=== PATIENT | female | born 1990 | race Caucasian/White ===

== ENCOUNTER 2016-05-19 16:31 | Emergency (ER) | payer OTHER ==
--- NOTE | 2016-05-19 19:23 | DIAGNOSTIC IMAGING REPORT ---
PROCEDURE: US 2ND TRIMESTER INDICATION: Lower abdominal pain TECHNIQUE: Wynne scale, color, and spectral Doppler images of the second trimester gravid uterus were obtained. COMPARISON: None. FINDINGS: Single intrauterine with breech presentation. Low-lying posterior placenta but no previa or abruptio. Normal heart rate, 135 bpm. Amniotic fluid is unremarkable. Normal closed cervix measures 3.8 cm. BPD 3.8 cm, 17 weeks 4 days; head, confidence of 14.1 cm, 17 weeks 3 days; abdominal circumference 11.9 cm, 17 weeks 4 days; femur length 2.4 cm, 17 weeks 1 day. Composite age 17 weeks 3 days. TERRELL 10/24/2016. IMPRESSION: 1. Single live intrauterine , breech, 17 weeks 3 days 2. TERRELL 10/24/2016 3. Low-lying posterior placenta without previa or abruptio
--- NOTE | 2016-05-19 19:45 | ED NURSING NOTES ---
Clinical Report - Nurses [facility] [address] [place] [place] [address] 05/19/2016 16:32 Patient: JV DAVID TRIAGE Triage time 16:44. Acuity: LEVEL 3. Chief Complaint: ABDOMINAL PAIN and SPOTTING. Alert. No acute distress. SEPSIS SCREEN: Sepsis Screen: negative. Negative (no infection suspected/documented). BERYL COMA SCORE: [place] Coma Scale: 15- eyes open spontaneously (4); best verbal response- oriented x 4 (5); best motor response- obeys commands (6). --16:50 Marii Hall R.N. 16:44 05/19/16. BP: 139/75. HR: 81. RR: 18. O2 saturation: 100%. Temp: 98.4 F. Pain level now: 11/15. --16:50 Marii Hall R.N. 16:44 05/19/16. BP: 139/75. HR: 81. RR: 18. O2 saturation: 100%. Temp: 98.4 F. Pain level now: 11/15. --16:51 Marii Hall R.N. HEART TONES: heart tones present to the right upper quadrant (135). --17:03 Marii Hall R.N. Weight: 68 kg stated. Height/Length: 59 inches Per Patient. BMI: 30.3. --16:48 Marii Hall R.N. Medications Asa 81mg day. --16:46 Marii Hall R.N. Vitamins Oral. --16:46 Marii Hall R.N. Medication/allergy information source: the patient. --16:50 Marii Hall R.N. Allergies No Known Drug Allergy. --16:46 Marii Hall R.N. History Arrived by private vehicle. Historian: patient and family. Accompanied by (Baby's father). Primary physician (steffany- ob). This is a new problem. (1 PM). No vomiting. Last oral intake by patient was lunch today. 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 PAST MEDICAL HX: Immunizations: status is unknown. Last normal menstrual period- Jan 20. 4. Para 3. Abortions 0. OB history: G 4; P 3; Ab 0. ( hypertension with last ). SURGERY HX: has been performed three times. SOCIAL HX: Never smoker. No alcohol use or drug use. FALL RISK ASSESSMENT: Fall risk assessment completed. No fall risk identified. NUTRITIONAL RISK ASSESSMENT: The nutritional risk assessment revealed no deficiencies. FUNCTIONAL ASSESSMENT: Functional assessment: no impairments noted. LEARNING NEEDS ASSESSMENT: The learning needs assessment revealed no barriers. SKIN INTEGRITY ASSESSMENT: Skin integrity risk assessment completed. No skin integrity risk identified. --16:50 Marii Hall R.N. Interventions ID band on patient. To room. --16:50 Marii Hall R.N. PHYSICAL ASSESSMENT To room via wheelchair. Patient gowned. GENERAL / NEURO / PSYCH: Alert. Oriented X 4. Appears in pain and anxious. HEENT: Mucous membranes are pink. RESPIRATORY: Respirations not labored. CVS: Capillary refill less than 2 seconds. GI / : Scant vaginal bleeding present (Happened x 1 after the incident. When wiped.). SKIN: Skin is warm and dry. --16:52 Marii Hall R.N. NURSING PROGRESS NOTES Patient gowned. Head of bed elevated. Two patient identifiers checked. Call light placed in reach. Side rails up x 2. Bed placed in lowest position. Brakes of bed on. Patient ready for evaluation. --16:52 Marii Hall R.N. <<STRICKEN ENTRY-- 18:10. --18:32 Marii Hall R.N. --END STRIKE>> Correction --18:33 Marii Hall R.N. 18:30 05/19/16. BP: 132/69. HR: 88. RR: 20. O2 saturation: 99% on room air. --18:32 Marii Hall R.N. ( us at the bedside.). --18:33 Marii Hall R.N. 19:00 05/19/16. Patient ID band checked for patient name: patient confirmed. Instructions provided to collect clean catch urine and patient verbalized understanding. Clean catch urine collected with return of yellow-colored clear urine; sample sent to lab for urinalysis and culture. Specimen labeled in the presence of the patient. --19:00 Marii Hall R.N. 18:30 05/19/16. BP: 132/69. HR: 88. RR: 20. O2 saturation: 99% on room air. --20:12 Marii Hall R.N. DISPOSITION / DISCHARGE Departure time: 1950 PM. Condition at departure: improved and stable. The goals identified in the patient's plan of care were met. No learning barriers present. Discharge instructions provided and reviewed with the patient. Reviewed warnings (follow up with OB). Reviewed medication(s) side effects, precautions, dosing and course information. Activity restrictions reviewed. Patient verbalized understanding. Written instructions provided in Slovak. FALL RISK ASSESSMENT: Fall risk assessment completed. No fall risk identified. --20:14 Marcelle Matt R.N. 19:45 05/19/16. BP: 120/57 (regular adult cuff) taken on the left arm, via an automated monitor, while sitting. HR: 76. RR: 15. O2 saturation: 97% on room air. Temp: 98.2 F (oral). Pain level now: 0/10. --20:14 Marcelle Matt R.N. Locked/Released at 05/19/2016 20:14 by Marcelle Matt R.N.
--- NOTE | 2016-05-19 19:45 | ED CLINICAL REPORT ---
Clinical Report - Physicians/Mid Levels [facility] [address] [place] [address] 05/19/2016 16:32 Patient: JV DAVID Time Seen: 17:35 May 19 2016. Arrived- By private vehicle. Historian- patient. HISTORY OF PRESENT ILLNESS Chief Complaint: PELVIC PAIN. This started just prior to arrival and still present. The symptoms are described as mild. The patient has had abdominal pain. No vaginal discharge, pain with urination or urinary frequency. Not sexually active. 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 Unsure of her blood type. Denher injuries.). REVIEW OF SYSTEMS No vomiting or diarrhea. All systems otherwise negative, except as recorded above. ADDITIONAL NOTES The nursing notes have been reviewed. PHYSICAL EXAM Vital Signs: 05/19/2016 16:44 BP: 139/75. HR: 81. RR: 18. O2 saturation: 100%. Temp: 98.4 F. Pain level now: 8/10. Appearance: Alert. HEENT: Normal external inspection. Neck: Neck supple. No thyromegaly or lymphadenopathy. CVS: Heart sounds normal. Rhythm normal. Respiratory: No respiratory distress. Breath sounds normal. Abdomen: Soft. Tenderness in the suprapubic area. Gravid uterus palpable to umbilicus. No organomegaly. Back: Normal external inspection. No CVA tenderness. Skin: Skin warm. Neuro: Oriented X 3. LABS, X-RAYS, AND EKG Laboratory Tests: UA-Culture if indicated: (LEELA: 05/19/2016 18:55) ( MsgRcvd 05/19/2016 19:31) Final results Test Result Flag Units (Reference) URINE COLOR YELLOW URINE APPEARANCE CLEAR URINE GLUCOSE NEGATIVE (NEGATIVE) URINE BILIRUBIN NEGATIVE (NEGATIVE) URINE KETONE NEGATIVE (NEGATIVE) URINE SPECIFIC GRAVITY 1.010 (1.010-1.030) URINE PH 6.0 (5.0-8.0) URINE PROTEIN NEGATIVE (NEGATIVE) URINE UROBILINOGEN 1.0 EU/dL (0.2-1.0) URINE NITRITE NEGATIVE (NEGATIVE) URINE BLOOD NEGATIVE (NEGATIVE) URINE LEUK ESTERASE POSITIVE (NEGATIVE) URINE RBC NONE SEEN rbc/hpf (0-1) URINE WBC 1-3 wbc/hpf (0-1) URINE EPITHELIAL CELLS 0-1 EPI/hpf (0-5) URINE BACTERIA TRACE (<1+) (NONE SEEN) URINE COMMENT CULTURE INDICATED URINE CULTURES ARE SET-UP BASED ON THE FOLLOWING CRITERIA:POSITIVE NITRITEPOSITIVE LEUKOCYTE ESTERASEGREATER THAN 10 WHITE BLOOD CELLSMODERATE (2+) OR GREATER BACTERIA Type & Rh: (LEELA: 05/19/2016 17:35) ( MsgRcvd 05/19/2016 17:51) Final results Test Result Flag Units (Reference) PATIENT BLOOD TYPE B Positive . Note - Tests: (US 2nd tri: IMPRESSION: 1. Single live intrauterine , breech, 17 weeks 3 days 2. TERRELL 10/24/2016 3. Low-lying posterior placenta without previa or abruptio Electronically Final signed by:Murali Morrell MD 05/19/2016 7:22:45 PM). PROGRESS AND PROCEDURES Course of Care: patient here and there is stable, no signs of injury. Pelvic exam per ago, patient denies any vaginal bleeding, and none noted while in the ER per patient. Patient is stable. Ultrasound is unremarkable. Urinalysis unremarkable. To follow up outpatient. Does not require RhoGAM at this time. Patient is stable. Symptoms better. Patient/family counseled. Disposition: Discharged. CLINICAL IMPRESSION Second trimester intrauterine . Contusion to abdomen in setting of . INSTRUCTIONS Drink plenty of fluids. Warnings: Further evaluation is necessary. OTC Medications: Take acetaminophen (Tylenol, Datril, etc.) according to label instructions. Available over the counter. Follow-up: Follow up with your doctor in three days. (Electronically signed by Darlene Avery P.A.-C 05/19/2016 21:13)
--- NOTE | 2016-05-19 19:45 | ED ORDER SUMMARY ---
..... Patient: JV DAVID OrderSheet [facility] VisitID: [id number] [address] [place] [address] 25y, F Registration Date/Time: 05/19/2016 ORDER SHEET Weight: 68.0 kg (stated) Allergies: No Known Drug Allergy GENERAL ORDERS: US OB 2nd Trimester (d) Urgent (17:06 05/19/2016 EKoroleva P.A.-C) (Ack 17:32 RKaruga) (19:29 ASchmuck) Type & Rh Urgent (17:06 05/19/2016 EKoroleva P.A.-C) (Ack 17:32 RKaruga) (19:49 Maggy R.N.) UA-Culture if indicated Urgent (17:48 05/19/2016 EKoroleva P.A.-C) (Ack 18:11 RKaruga) (19:31 ALawrence ER Tech1) US Abdomen Limited (No) Urgent (20:09 05/19/2016 EKoroleva P.A.-C) (Cancelled: Other20:09 EKoroleva P.A.-C) MEDICATION ORDERS: IV FLUIDS: ORDER SHEET NOTES: [Electronically signed by Marcelle Matt R.N. (20:14 05/19/2016)] [Electronically signed by Darlene Avery P.A.-C (21:13 05/19/2016)] [Electronically locked/signed by Marcelle Matt R.N. (20:14 05/19/2016)]
--- NOTE | 2016-05-19 19:45 | ED ORDER SUMMARY ---
..... Patient: JV DAVID OrderSheet [facility] VisitID: [id number] [address] [place] [address] 25y, F Registration Date/Time: 05/19/2016 ORDER SHEET Weight: 68.0 kg (stated) Allergies: No Known Drug Allergy GENERAL ORDERS: US OB 2nd Trimester (d) Urgent (17:06 05/19/2016 EKoroleva P.A.-C) (Ack 17:32 RKaruga) (19:29 ASchmuck) Type & Rh Urgent (17:06 05/19/2016 EKoroleva P.A.-C) (Ack 17:32 RKaruga) (19:49 Maggy R.N.) UA-Culture if indicated Urgent (17:48 05/19/2016 EKoroleva P.A.-C) (Ack 18:11 RKaruga) (19:31 ALawrence ER Tech1) US Abdomen Limited (No) Urgent (20:09 05/19/2016 EKoroleva P.A.-C) (Cancelled: Other20:09 EKoroleva P.A.-C) MEDICATION ORDERS: IV FLUIDS: ORDER SHEET NOTES: [Electronically signed by Marcelle Matt R.N. (20:14 05/19/2016)] [Electronically signed by Darlene Avery P.A.-C (21:13 05/19/2016)] [Electronically locked/signed by Marcelle Matt R.N. (20:14 05/19/2016)]
--- NOTE | 2016-05-19 19:45 | ED NURSING NOTES ---
Clinical Report - Nurses [address] [place] [place] [address] 05/19/2016 16:32 Patient: JV DAVID TRIAGE Triage time 16:44. Acuity: LEVEL 3. Chief Complaint: ABDOMINAL PAIN and SPOTTING. Alert. No acute distress. SEPSIS SCREEN: Sepsis Screen: negative. Negative (no infection suspected/documented). BERYL COMA SCORE: [place] Coma Scale: 15- eyes open spontaneously (4); best verbal response- oriented x 4 (5); best motor response- obeys commands (6). --16:50 Marii Hall R.N. 16:44 05/19/16. BP: 139/75. HR: 81. RR: 18. O2 saturation: 100%. Temp: 98.4 F. Pain level now: 11/15. --16:50 Marii Hall R.N. 16:44 05/19/16. BP: 139/75. HR: 81. RR: 18. O2 saturation: 100%. Temp: 98.4 F. Pain level now: 11/15. --16:51 Marii Hall R.N. HEART TONES: heart tones present to the right upper quadrant (135). --17:03 Marii Hall R.N. Weight: 68 kg stated. Height/Length: 59 inches Per Patient. BMI: 30.3. --16:48 Marii Hall R.N. Medications Asa 81mg day. --16:46 Marii Hall R.N. Vitamins Oral. --16:46 Marii Hall R.N. Medication/allergy information source: the patient. --16:50 Marii Hall R.N. Allergies No Known Drug Allergy. --16:46 Marii Hall R.N. History Arrived by private vehicle. Historian: patient and family. Accompanied by (Baby's father). Primary physician (steffany- ob). This is a new problem. (1 PM). No vomiting. Last oral intake by patient was lunch today. Treatment HAND THERAPIST: None. PAST MEDICAL HX: Immunizations: status is unknown. Last normal menstrual period- Jan 20. 4. Para 3. Abortions 0. OB history: G 4; P 3; Ab 0. ( hypertension with last ). SURGERY HX: has been performed three times. SOCIAL HX: Never smoker. No alcohol use or drug use. FALL RISK ASSESSMENT: Fall risk assessment completed. No fall risk identified. NUTRITIONAL RISK ASSESSMENT: The nutritional risk assessment revealed no deficiencies. FUNCTIONAL ASSESSMENT: Functional assessment: no impairments noted. LEARNING NEEDS ASSESSMENT: The learning needs assessment revealed no barriers. SKIN INTEGRITY ASSESSMENT: Skin integrity risk assessment completed. No skin integrity risk identified. --16:50 Marii Hall R.N. Interventions ID band on patient. To room. --16:50 Marii Hall R.N. PHYSICAL ASSESSMENT To room via wheelchair. Patient gowned. GENERAL / NEURO / PSYCH: Alert. Oriented X 4. Appears in pain and anxious. HEENT: Mucous membranes are pink. RESPIRATORY: Respirations not labored. CVS: Capillary refill less than 2 seconds. GI / : Scant vaginal bleeding present (Happened x 1 after the incident. When wiped.). SKIN: Skin is warm and dry. --16:52 Marii Hall R.N. NURSING PROGRESS NOTES Patient gowned. Head of bed elevated. Two patient identifiers checked. Call light placed in reach. Side rails up x 2. Bed placed in lowest position. Brakes of bed on. Patient ready for evaluation. --16:52 Marii Hall R.N. <<STRICKEN ENTRY-- 18:10. --18:32 Marii Hall R.N. --END STRIKE>> Correction --18:33 Marii Hall R.N. 18:30 05/19/16. BP: 132/69. HR: 88. RR: 20. O2 saturation: 99% on room air. --18:32 Marii Hall R.N. ( us at the bedside.). --18:33 Marii Hall R.N. 19:00 05/19/16. Patient ID band checked for patient name: patient confirmed. Instructions provided to collect clean catch urine and patient verbalized understanding. Clean catch urine collected with return of yellow-colored clear urine; sample sent to lab for urinalysis and culture. Specimen labeled in the presence of the patient. --19:00 Marii Hall R.N. 18:30 05/19/16. BP: 132/69. HR: 88. RR: 20. O2 saturation: 99% on room air. --20:12 Marii Hall R.N. DISPOSITION / DISCHARGE Departure time: 1950 PM. Condition at departure: improved and stable. The goals identified in the patient's plan of care were met. No learning barriers present. Discharge instructions provided and reviewed with the patient. Reviewed warnings (follow up with OB). Reviewed medication(s) side effects, precautions, dosing and course information. Activity restrictions reviewed. Patient verbalized understanding. Written instructions provided in Luxembourgish. FALL RISK ASSESSMENT: Fall risk assessment completed. No fall risk identified. --20:14 Marcelle Matt R.N. 19:45 05/19/16. BP: 120/57 (regular adult cuff) taken on the left arm, via an automated monitor, while sitting. HR: 76. RR: 15. O2 saturation: 97% on room air. Temp: 98.2 F (oral). Pain level now: 0/10. --20:14 Marcelle Matt R.N. Locked/Released at 05/19/2016 20:14 by Marcelle Matt R.N.
--- NOTE | 2016-05-19 19:45 | ED CLINICAL REPORT ---
Clinical Report - Physicians/Mid Levels [facility] [address] [place] [address] 05/19/2016 16:32 Patient: JV DAVID Time Seen: 17:35 May 19 2016. Arrived- By private vehicle. Historian- patient. HISTORY OF PRESENT ILLNESS Chief Complaint: PELVIC PAIN. This started just prior to arrival and still present. The symptoms are described as mild. The patient has had abdominal pain. No vaginal discharge, pain with urination or urinary frequency. Not sexually active. 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 Unsure of her blood type. Denher injuries.). REVIEW OF SYSTEMS No vomiting or diarrhea. All systems otherwise negative, except as recorded above. ADDITIONAL NOTES The nursing notes have been reviewed. PHYSICAL EXAM Vital Signs: 05/19/2016 16:44 BP: 139/75. HR: 81. RR: 18. O2 saturation: 100%. Temp: 98.4 F. Pain level now: 8/10. Appearance: Alert. HEENT: Normal external inspection. Neck: Neck supple. No thyromegaly or lymphadenopathy. CVS: Heart sounds normal. Rhythm normal. Respiratory: No respiratory distress. Breath sounds normal. Abdomen: Soft. Tenderness in the suprapubic area. Gravid uterus palpable to umbilicus. No organomegaly. Back: Normal external inspection. No CVA tenderness. Skin: Skin warm. Neuro: Oriented X 3. LABS, X-RAYS, AND EKG Laboratory Tests: UA-Culture if indicated: (LEELA: 05/19/2016 18:55) ( MsgRcvd 05/19/2016 19:31) Final results Test Result Flag Units (Reference) URINE COLOR YELLOW URINE APPEARANCE CLEAR URINE GLUCOSE NEGATIVE (NEGATIVE) URINE BILIRUBIN NEGATIVE (NEGATIVE) URINE KETONE NEGATIVE (NEGATIVE) URINE SPECIFIC GRAVITY 1.010 (1.010-1.030) URINE PH 6.0 (5.0-8.0) URINE PROTEIN NEGATIVE (NEGATIVE) URINE UROBILINOGEN 1.0 EU/dL (0.2-1.0) URINE NITRITE NEGATIVE (NEGATIVE) URINE BLOOD NEGATIVE (NEGATIVE) URINE [place]UK ESTERASE POSITIVE (NEGATIVE) URINE RBC NONE SEEN rbc/hpf (0-1) URINE WBC 1-3 wbc/hpf (0-1) URINE EPITHELIAL CELLS 0-1 EPI/hpf (0-5) URINE BACTERIA TRACE (<1+) (NONE SEEN) URINE COMMENT CULTURE INDICATED URINE CULTURES ARE SET-UP BASED ON THE FOLLOWING CRITERIA:POSITIVE NITRITEPOSITIVE LEUKOCYTE ESTERASEGREATER THAN 10 WHITE BLOOD CELLSMODERATE (2+) OR GREATER BACTERIA Type & Rh: (LEELA: 05/19/2016 17:35) ( MsgRcvd 05/19/2016 17:51) Final results Test Result Flag Units (Reference) PATIENT BLOOD TYPE B Positive . Note - Tests: (US 2nd tri: IMPRESSION: 1. Single live intrauterine , breech, 17 weeks 3 days 2. TERRELL 10/24/2016 3. Low-lying posterior placenta without previa or abruptio Electronically Final signed by:Murali Morrell MD 05/19/2016 7:22:45 PM). PROGRESS AND PROCEDURES Course of Care: patient here and there is stable, no signs of injury. Pelvic exam per ago, patient denies any vaginal bleeding, and none noted while in the ER per patient. Patient is stable. Ultrasound is unremarkable. Urinalysis unremarkable. To follow up outpatient. Does not require RhoGAM at this time. Patient is stable. Symptoms better. Patient/family counseled. Disposition: Discharged. CLINICAL IMPRESSION Second trimester intrauterine . Contusion to abdomen in setting of . INSTRUCTIONS Drink plenty of fluids. Warnings: Further evaluation is necessary. OTC Medications: Take acetaminophen (Tylenol, Datril, etc.) according to label instructions. Available over the counter. Follow-up: Follow up with your doctor in three days. (Electronically signed by Darlene Avery P.A.-C 05/19/2016 21:13)
--- NOTE | 2016-05-19 21:13 | ED MAR SUMMARY ---
..... Medication Administration Record [facility] [address] [place], [place] [id number] Patient: JV DAVID Visit ID: [id number] 25y, F Weight: 68.0 kg Height/Length: 59 in BMI: 30.3 ALLERGIES: No Known Drug Allergy
--- NOTE | 2016-05-19 21:13 | ED MAR SUMMARY ---
..... Medication Administration Record [facility] [address] [place], [place] [id number] Patient: JV DAVID Visit ID: [id number] 25y, F Weight: 68.0 kg Height/Length: 59 in BMI: 30.3 ALLERGIES: No Known Drug Allergy
--- NOTE | 2016-05-19 21:13 | ED MED RECONCILIATION SUMMARY ---
Patient: JV DAVID Medication Reconciliation Report [facility] VisitID: [id number] [address] [place] [address] 25y, F Registration Date/Time: 05/19/2016 Weight: 68.0 kg Height/Length: 59 in. BMI: 30.3 ALLERGIES: No Known Drug Allergy The patient's Home Medications are listed below: THE FOLLOWING MEDICATIONS NEED TO BE RECONCILED: Asa 81mg day Vitamins Oral The source(s) of the original Home Medication information: patient The following Medications were given to the patient in the Emergency Department: None. The following Medications were prescribed to the patient: Take acetaminophen (Tylenol, Datril, etc.) according to label instructions. Available over the counter. -- Darlene Avery P.A.-C
--- NOTE | 2016-05-19 21:13 | ED MED RECONCILIATION SUMMARY ---
Patient: JV DAVID Medication Reconciliation Report [facility] VisitID: [id number] [address] [place] [address] 25y, F Registration Date/Time: 05/19/2016 Weight: 68.0 kg Height/Length: 59 in. BMI: 30.3 ALLERGIES: No Known Drug Allergy The patient's Home Medications are listed below: THE FOLLOWING MEDICATIONS NEED TO BE RECONCILED: Asa 81mg day Vitamins Oral The source(s) of the original Home Medication information: patient The following Medications were given to the patient in the Emergency Department: None. The following Medications were prescribed to the patient: Take acetaminophen (Tylenol, Datril, etc.) according to label instructions. Available over the counter. -- Darlene Avery P.A.-C
--- NOTE | 2016-05-19 21:13 | ED DISCHARGE INSTRUCTIONS ---
Patient: JV DAVID General Instructions [facility] VisitID: [id number] [address] [place] [address] 25y, F Registration Date/Time: 05/19/2016 Second trimester intrauterine . Contusion to abdomen in setting of . INSTRUCTIONS Drink plenty of fluids. Warnings: Further evaluation is necessary. OTC Medications: Take acetaminophen (Tylenol, Datril, etc.) according to label instructions. Available over the counter. Follow-up: Follow up with your doctor in three days. (Electronically signed by Darlene Avery P.A.-C 05/19/2016 21:13)
--- NOTE | 2016-05-19 21:13 | ED DISCHARGE INSTRUCTIONS ---
Patient: JV DAVID General Instructions [facility] VisitID: [id number] [address] [place] [address] 25y, F Registration Date/Time: 05/19/2016 Second trimester intrauterine . Contusion to abdomen in setting of . INSTRUCTIONS Drink plenty of fluids. Warnings: Further evaluation is necessary. OTC Medications: Take acetaminophen (Tylenol, Datril, etc.) according to label instructions. Available over the counter. Follow-up: Follow up with your doctor in three days. (Electronically signed by Darlene Avery P.A.-C 05/19/2016 21:13)
== END 2016-05-19 19:50 | disposition home or self-care (01) ==
LOC: ED SRH 16:31
DX: O9A.212 Injury, poisoning and certain other consequences of external causes complicating pregnancy, second trimester (principal); S36.32XA Contusion of stomach, initial encounter; X58.XXXA Exposure to other specified factors, initial encounter; Y93.9 Activity, unspecified; Y99.9 Unspecified external cause status; Y92.9 Unspecified place or not applicable; Z3A.17 17 weeks gestation of pregnancy
CPT/HCPCS: 90001; 90004; 90074; 90155; 90469